=== PATIENT | female | born 1990 | race Caucasian/White ===

== ENCOUNTER 2022-06-08 15:20 | Emergency (ER) | payer MEDICAID, SELFPAY ==
[2022-06-08 15:33] VITALS: BP 114/76; PULSE 78; RESP 18; TEMP 37.1; O2SAT 99; BMI 20.8
--- OUTSIDE RECORDS SUMMARY | 2022-06-08 16:08 | XMS_ITS | Clinical Summary ---
:1990 Author Organization [facility] [facility] [place] [address] Care Team Providers Name Role Phone Pcp, No Primary Care Provider Unavailable Allergies No known active allergies Medications No known medications Active Problems Problem Noted Date Contraceptive surveillance, unspecified 02/04/2008 Immunizations Name Administration Dates Next Due DTP 01/06/1995, 08/26/1991, 1990 DTP-HIB 01/23/1993 DTaP-HIB (TriHIBIT) 01/23/1993 Hepatitis B (Peds) 08/30/2002, 03/28/2002, 02/16/2002 MMR 02/16/2002, 01/23/1993 Oral Polio Vaccine 01/06/1995, 01/23/1993, 1990 Td (Age >=7 Years) 08/02/2004 Tuberculin (PPD) 04/07/2008 Family History Medical History Relation Name Comments Other Father Brain aneurysm Good Health Maternal Grandmother Good Health Mother Diabetes Paternal Grandmother Relation Name Status Comments Father Maternal Grandmother Mother Paternal Grandmother Social History Tobacco Use Types Packs/Day Years Used Date Current Every Day Smoker Cigarettes 0.5 Smokeless Tobacco: Never Used Comments: mother/brother inside-pt still smokes sometimes Alcohol Use Standard Drinks/Week Comments No 0 (1 standard drink = 0.6 oz pure alcoho l) Sex Assigned at Date Recorded Not on file Obstetrics History Para Term AB IAB SAB Ectopic Multiple Living Live Births 0 0 0 0 0 0 0 0 0 0 Last Filed Vital Signs Vital Sign Reading Time Taken Comments Blood Pressure 122/77 01/02/2011 5:20 PM CDT Pulse 105 01/02/2011 5:20 PM CDT Temperature 36.7 ??C (98.1 ??F) 11/23/2007 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 Respiratory Rate - - Oxygen Saturation - - Inhaled Oxygen Concentration - - Weight 73.2 kg (161 lb 6.4 oz) 01/02/2011 5:20 PM CDT Height 165.7 cm (5' 5.25) 01/15/2010 2:22 PM CDT Body Mass Index - - Plan of Treatment Health Maintenance Due Date Last Done Comments COVID-19 vaccine series (#1) 1990 Tdap 2001 Depression screening for age 12+ 2002 BMI (ht and wt on same day) for 01/23/2008 age 18+ Hepatitis C screening for age 0501/23/2008 18-79 Tetanus booster 08/02/2014 08/02/2004 Pap test for age 21-65 10/20/2016 10/20/2013, 10/20/2013, 12/11/2011, Additional history exists Influenza for age 9-49 05/22/2022 Results Not on filefrom Last 3 Months Insurance Payer Benefit Plan / Subscriber ID Effective Dates Phone Addre ss Type Group BLUE CROSS BLUE CROSS OF [id number] 2010-Present [address] [place] [address] [facility] Employer 09/21/1900 [address] [facility] (Home) JAMEE REYES [address] [facility] Self [phone] [facility] [place] [address] Care Teams Canine Enforcement Officer Relationship Specialty Start Date End Date Pcp, No PCP - General 08/27/18 .
[2022-06-08 16:18] LABS: Lactate* 0.6 mmol/L (0.5-1.9)
[2022-06-08 16:20] LABS: Basophils Absolute Auto 0.03 K/uL (0.00-0.30); Basophils Percent Auto 0.6 % (0.0-3.0); Eosinophils Absolute Auto 0.07 K/uL (0.00-0.50); Eosinophils Percent Auto 1.4 % (0.0-7.0); Hemoglobin* 11.3 gm/dL (12.0-16.0); Mean Corpuscular HGB Conc 34 gm/dL (32-36); Mean Corpuscular Hemoglobin 30 pg (26-34); Mean Corpuscular Volume 88 fL (80-100); Monocytes Percent Auto 6.7 % (0.0-11.0); Neutrophils Absolute Auto 2.15 K/uL (1.7-7.0); Neutrophils Percent Auto 43.3 % (42.0-72.0); Platelet Count* 203 K/uL (140-440); RDW Coefficient of Variation % 12.3 % (11.5-15.5); Red Blood Count 3.75 m/uL (4.00-5.20); White Blood Count* 4.96 K/uL (4.50-11.00)
[2022-06-08 16:23] LABS: Slide Review Reflex No
[2022-06-08] MEDS: 0.9 % SODIUM CHLORIDE 1000 ml 1,000 ML IV (16:26)
[2022-06-08] MEDS: ONDANSETRON 2 MG/ML inj 4 MG IVP (16:26)
[2022-06-08 16:38] LABS: Albumin* 4.2 g/dL (3.3-5.0)
[2022-06-08 16:39] LABS: Chloride* 111 mmol/L (96-114); Potassium* 3.2 mmol/L (3.6-5.1); Sodium* 142 mmol/L (135-149)
[2022-06-08 16:41] LABS: Alkaline Phosphatase* 42 U/L (40-150); Aspartate Amino Transferase* 16 U/L (12-35); Bilirubin Direct* 0.2 mg/dL (0.0-0.5); Bilirubin Total* 0.2 mg/dL (0.1-1.5); Total Protein* 6.6 g/dL (6.0-8.3)
[2022-06-08 16:42] LABS: Alanine Aminotransferase* 14 U/L (4-35); Carbon Dioxide* 21 mmol/L (20-32); Creatinine* 0.6 mg/dL (0.5-1.5); Est. Creatinine Clearance* 124.34; Estimated Glomerular Filt Rate 122 ml/min; Lipase* 87 U/L (23-300)
[2022-06-08 16:43] LABS: Blood Urea Nitrogen* 7 mg/dL (5-24); Calcium* 8.8 mg/dL (8.4-10.6); Glucose* 86 mg/dL (60-115)
[2022-06-08] MEDS: POTASSIUM CHLORIDE 10 MEQ CAPSULE ER 20 MEQ PO (17:36)
--- NOTE | 2022-06-08 17:49 | ED.GENADULT ---
HPI - General Adult General Chief complaint: Nausea/Vomiting Stated complaint: blurred and double vision Time Seen by Provider: 06/08/22 15:26 Source: patient Mode of arrival: ambulatory Limitations: no limitations History of Present Illness HPI narrative: Patient is a 32-year-old female coming in today complaining of nausea vomiting and diarrhea. She states that for the last several days she has had 10 or more episodes of diarrhea and 10 or more episodes of vomiting every single day. She tells me that she has lost 16 lb in the last 4 days. She is not dizzy. She states that she had some blurry vision today but not to the point where she could drive a car. She denies abdominal pain. She denies any chest pain. No skin rashes. She denies any recent antibiotic use. She was seen in the urgent care yesterday and received a L of normal saline and some Zofran. She is requesting the same treatment today. No fevers or chills. No headache. Related Data Home Medications Medication Instructions Recorded Confirmed sertraline 100 mg tablet 100 mg PO 06/07/22 06/07/22 topiramate 100 mg tablet 100 mg PO 06/07/22 06/07/22 valacyclovir 500 mg tablet 500 mg PO PRN 06/07/22 06/07/22 Previous Rx's Medication Instructions Recorded ondansetron 4 mg disintegrating 4 mg PO Q8H PRN nausea and 06/07/22 tablet vomiting #30 tabs Allergies Allergy/AdvReac Type Severity Reaction Status Date / Time guaifenesin [From Mucinex] Allergy Intermediate Hallucinati Verified 06/07/22 12:52 ng Review of Systems Status of ROS: Reports: 10 or more systems reviewed and unremarkable except as noted in History and below [facility] Medical History Vomiting Social History Smoking Status: Former smoker Exam Narrative: Exam Narrative: Well-nourished well-developed patient in no acute distress. Alert and oriented. Answers questions appropriately. Mood and affect are appropriate. Thoughts are goal oriented and rational. No tangential or magical thinking noted. Patient speaks in full sentences without needing to catch her breath. Speech is not slurred or pressured. Patient is well groomed. She does not appear sick or toxic. HEENT: Normocephalic atraumatic. Pupils are equally round reactive to light. Extraocular muscles are intact. Conjunctivae are moist without any icterus noted. Moist mucous membranes. Posterior pharynx is normal. Neck is soft without any lymphadenopathy or thyromegaly. No masses are appreciated. Cardiovascular: Heart is regular rate and rhythm S1 and S2 are present without any murmurs. Lungs: Clear to auscultation bilaterally no wheezes rhonchi or rales are appreciated. Patient takes deep breaths without any discomfort. Abdomen: Soft and nontender nondistended with normal bowel sounds. No guarding or rebound. No masses or organomegaly appreciated. Extremities: Bilateral lower extremities are without edema. Normal DP and PT pulses. Skin: Well perfused without any obvious rashes. Her skin is not dry. Const: Vital Signs, click to edit/add: Vital Signs - 24 hr 06/08/22 15:33 Temperature 98.8 F Pulse Rate [Right Pulse Oximeter] 78 Respiratory Rate 18 Blood Pressure [Ri ght Upper Arm] 114/76 Pulse Oximetry 99 Oxygen Delivery Me thod Room Air Course Course Hospital Course: IV was started and patient received a L of normal saline and Zofran. Her lab work was unremarkable aside from a slightly low potassium at 3.2. Did replace that orally today while in the ED. She did not vomit or have any diarrhea while she was here, which was just over 3 hours. Vital Signs Vital signs: Initial Vital Signs Temperature 98.8 F 06/08/22 15:33 Temperature Source Temporal Artery Scan 06/08/22 15:33 Pulse Rate 78 06/08/22 15:33 Respiratory Rate 18 06/08/22 15:33 Blood Pressure 114/76 06/08/22 15:33 Blood Pressure Mean 88 06/08/22 15:33 Blood Pressure Position Sitting 06/08/22 15:33 Pulse Oximetry 99 06/08/22 15:33 Oxygen Delivery Method 06/08/22 15:33 Vital Signs Temperature 98.8 F 06/08/22 15:33 Pulse Rate 78 06/08/22 15:33 Respiratory Rate 18 06/08/22 15:33 Blood Pressure 114/76 06/08/22 15:33 Pulse Oximetry 99 06/08/22 15:33 Oxygen Delivery Method 06/08/22 15:33 Temperature 98.8 F 06/08/22 15:33 Pulse Rate 78 06/08/22 15:33 Respiratory Rate 18 06/08/22 15:33 Blood Pressure 114/76 06/08/22 15:33 Pulse Oximetry 99 06/08/22 15:33 Oxygen Delivery Method 06/08/22 15:33 Medical Decision Making MDM Narrative Medical decision making narrative: 32-year-old female with vomiting diarrhea. We discussed this can last several days for gets better. We discussed small sips frequently throughout the day. She was prescribed Zofran yesterday so she already has that at home. She had no other questions or concerns. Follow-up with her primary care provider regarding weight loss. Lab Data Lab results reviewed: Yes I reviewed the patient's lab results Labs: Lab Results 06/08/22 06/08/22 06/08/22 Range/Units 16:14 16:14 16:14 WBC 4.96 (4.50-11.00) K/uL RBC 3.75 L (4.00-5.20) m/uL Hgb 11.3 L (12.0-16.0) gm/dL Hct 33.0 (33.0-51.0) % MCV 88 (80-100) fL MCH 30 (26-34) pg MCHC 34 (32-36) gm/dL RDW Coeff of Karey 12.3 (11.5-15.5) % Plt Count 203 (140-440) K/uL Neut % (Auto) 43.3 (42.0-72.0) % Lymph % (Auto) 48.0 H (20-44) % [place] % (Auto) 6.7 (0.0-11.0) % Eos % (Auto) 1.4 (0.0-7.0) % Baso % (Auto) 0.6 (0.0-3.0) % Neut # (Auto) 2.15 (1.7-7.0) K/uL Lymph # (Auto) 2.40 (0.90-2.90) K/uL [place] # (Auto) 0.30 (0.00-0.90) K/UL Eos # (Auto) 0.07 (0.00-0.50) K/uL Baso # (Auto) 0.03 (0.00-0.30) K/uL Abs Immat Gran (auto) 0.00 (0.00-0.30) K/uL Sodium 142 (135-149) mmol/L Potassium 3.2 L (3.6-5.1) mmol/L Chloride 111 (96-114) mmol/L Carbon Dioxide 21 (20-32) mmol/L BUN 7 (5-24) mg/dL Creatinine 0.6 (0.5-1.5) mg/dL Estimated Creat Clear 124.34 Estimated GFR 122 ml/min Glucose 86 (60-115) mg/dL Lactate (0.5-1.9) mmol/L Calcium 8.8 (8.4-10.6) mg/dL Total Bilirubin 0.2 (0.1-1.5) mg/dL Direct Bilirubin 0.2 (0.0-0.5) mg/dL AST 16 (12-35) U/L ALT 14 (4-35) U/L Alkaline Phosphatase 42 (40-150) U/L Total Protein 6.6 (6.0-8.3) g/dL Albumin 4.2 (3.3-5.0) g/dL Lipase 87 (23-300) U/L Urine Color (Yellow) Urine Appearance (Clear) Urine pH (5.0-8.5) Ur Specific [place] (1.000-1.030) Urine Protein (Negative) Urine Glucose (UA) (Negative) Urine Ketones (Negative) Urine Blood (Negative) Urine Nitrite (Negative) Urine Bilirubin (Negative) Urine Urobilinogen (0.2-1.0) Ur Leukocyte Esterase (Negative) Urine RBC (0-2) Urine WBC (0-5) Ur Squamous Epith Cells (None-Few) Urine Bacteria (None) 06/08/22 06/08/22 Range/Units 16:14 17:58 WBC (4.50-11.00) K/uL RBC (4.00-5.20) m/uL Hgb (12.0-16.0) gm/dL Hct (33.0-51.0) % MCV (80-100) fL MCH (26-34) pg MCHC (32-36) gm/dL RDW Coeff of Karey (11.5-15.5) % Plt Count (140-440) K/uL Neut % (Auto) (42.0-72.0) % Lymph % (Auto) (20-44) % [place] % (Auto) (0.0-11.0) % Eos % (Auto) (0.0-7.0) % Baso % (Auto) (0.0-3.0) % Neut # (Auto) (1.7-7.0) K/uL Lymph # (Auto) (0.90-2.90) K/uL [place] # (Auto) (0.00-0.90) K/UL Eos # (Auto) (0.00-0.50) K/uL Baso # (Auto) (0.00-0.30) K/uL Abs Immat Gran (auto) (0.00-0.30) K/uL Sodium (135-149) mmol/L Potassium (3.6-5.1) mmol/L Chloride (96-114) mmol/L Carbon Dioxide (20-32) mmol/L BUN (5-24) mg/dL Creatinine (0.5-1.5) mg/dL Estimated Creat Clear Estimated GFR ml/min Glucose (60-115) mg/dL Lactate 0.6 (0.5-1.9) mmol/L Calcium (8.4-10.6) mg/dL Total Bilirubin (0.1-1.5) mg/dL Direct Bilirubin (0.0-0.5) mg/dL AST (12-35) U/L ALT (4-35) U/L Alkaline Phosphatase (40-150) U/L Total Protein (6.0-8.3) g/dL Albumin (3.3-5.0) g/dL Lipase (23-300) U/L Urine Color Yellow (Yellow) Urine Appearance Clear (Clear) Urine pH 7.0 (5.0-8.5) Ur Specific [place] 1.015 (1.000-1.030) Urine Protein Negative (Negative) Urine Glucose (UA) Negative (Negative) Urine Ketones Negative (Negative) Urine Blood Negative (Negative) Urine Nitrite Negative (Negative) Urine Bilirubin Negative (Negative) Urine Urobilinogen 0.2 (0.2-1.0) Ur Leukocyte Esterase Negative (Negative) Urine RBC 0-2 (0-2) Urine WBC 0-2 (0-5) Ur Squamous Epith Cells Moderate A (None-Few) Urine Bacteria Few A (None) Discharge Plan Discharge Clinical Impression: Gastroenteritis, Acute hypokalemia Patient Disposition: Home, Self-Care Condition: Stable Additional Instructions: Take Zofran every 4 hours as needed. Take small sips of fluid frequently throughout the day. Return to the ER if you develop a fever. Prescriptions: No Action topiramate 100 mg tablet 100 mg PO Label Comments: TAKE ONE TABLET BY MOUTH AT BEDTIME sertraline 100 mg tablet 100 mg PO Label Comments: TAKE ONE TABLET BY MOUTH EVERY DAY valacyclovir 500 mg tablet 500 mg PO PRN Label Comments: TAKE ONE TABLET BY MOUTH TWICE A DAY ondansetron 4 mg tablet,disintegrating 4 mg PO Q8H PRN (Reason: nausea and vomiting) Qty: 30 0RF Follow Up/Referrals: Hemant Ayala MD [Primary Care Provider] - Stand Alone Forms: [email or web address] Info Instructions
[2022-06-08 18:31] LABS: Appearance Urine Clear (Clear); Bilirubin Urine Negative (Negative); Blood Urine Negative (Negative); Color Urine Yellow (Yellow); Glucose Urine Negative (Negative); Ketones Urine Negative (Negative); Leukocyte Esterase Urine Negative (Negative); Nitrite Urine Negative (Negative); Protein Urine Negative (Negative); Specific Gravity Urine 1.015 (1.000-1.030); Urobilinogen Urine 0.2 (0.2-1.0)
[2022-06-08 18:33] LABS: Bacteria Urine Few; RBC Urine 0-2 (0-2); Squamous Epithelial Cell Urine Moderate (None-Few); WBC Urine 0-2 (0-5)
[2022-06-08 19:17] VITALS: BP 107/74; PULSE 61; RESP 16; O2SAT 99
--- NOTE | 2022-06-09 16:04 | ED.NURSE ---
Lab called wondering about sample collection for Cdiff ordered during pt's visit. Reviewed pt's DC plan and provider note and advised lab that it did not appear that the pt would be collecting or providing a sample.
== END 2022-06-08 19:21 | disposition home or self-care (01) ==
PROVIDERS: Emergency Provider Family Medicine; PCP Family Medicine
DX: K52.9 Noninfective gastroenteritis and colitis, unspecified (principal); E87.6 Hypokalemia
CPT/HCPCS: 36415; 80048; 80076; 81001; 83605; 83690; 85025; 87086; 87493; 96374; 99284; A9270; J2405; J7030

== ENCOUNTER 2022-06-10 10:20 | Outpatient (CLI) | payer MEDICAID, SELFPAY ==
--- OUTSIDE RECORDS SUMMARY | 2022-06-10 10:23 | XMS_ITS | Clinical Summary ---
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
[2022-06-10 13:45] LABS: Basophils Absolute Auto 0.04 K/uL (0.00-0.30); Basophils Percent Auto 0.7 % (0.0-3.0); Eosinophils Absolute Auto 0.06 K/uL (0.00-0.50); Eosinophils Percent Auto 1.1 % (0.0-7.0); Hematocrit 35.5 % (33.0-51.0); Hemoglobin* 12.1 gm/dL (12.0-16.0); Lymphocytes Absolute Auto 2.07 K/uL (0.90-2.90); Lymphocytes Percent Auto 38.3 % (20-44); Mean Corpuscular HGB Conc 34 gm/dL (32-36); Mean Corpuscular Hemoglobin 30 pg (26-34); Mean Corpuscular Volume 89 fL (80-100); Monocytes Percent Auto 4.8 % (0.0-11.0); Neutrophils Absolute Auto 2.98 K/uL (1.7-7.0); Neutrophils Percent Auto 55.1 % (42.0-72.0); Platelet Count* 236 K/uL (140-440); RDW Coefficient of Variation % 12.4 % (11.5-15.5); Red Blood Count 3.99 m/uL (4.00-5.20); White Blood Count* 5.41 K/uL (4.50-11.00)
[2022-06-10 13:52] LABS: Chloride* 110 mmol/L (96-114); Potassium* 4.1 mmol/L (3.6-5.1); Slide Review Reflex No; Sodium* 141 mmol/L (135-149)
[2022-06-10 13:55] LABS: Creatinine* 0.6 mg/dL (0.5-1.5); Estimated Glomerular Filt Rate 122 ml/min
[2022-06-10 13:56] LABS: Blood Urea Nitrogen* 8 mg/dL (5-24); Calcium* 9.2 mg/dL (8.4-10.6); Carbon Dioxide* 21 mmol/L (20-32); Glucose* 86 mg/dL (60-115)
== END 2022-06-10 10:21 | disposition home or self-care (01) ==
PROVIDERS: PCP Family Medicine; Visit Provider Nurse Practitioner Family
DX: R42 Dizziness and giddiness (principal); E87.6 Hypokalemia
CPT/HCPCS: 36415; 80048; 85025

== ENCOUNTER 2022-07-31 09:05 | Outpatient (CLI) | payer MEDICAID, SELFPAY ==
--- OUTSIDE RECORDS SUMMARY | 2022-07-31 09:11 | XMS_ITS | Clinical Summary ---
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
== END 2022-07-31 09:06 | disposition home or self-care (01) ==
LOC: KYNREF 09:06
PROVIDERS: PCP Family Medicine; Visit Provider Nurse Practitioner Family
DX: R41.840 Attention and concentration deficit (principal)
CPT/HCPCS: 36415; 84443

== ENCOUNTER 2022-12-15 16:52 | Emergency (ER) | payer MEDICAID, SELFPAY ==
[2022-12-15 17:25] VITALS: BP 125/88; PULSE 75; RESP 18; TEMP 36.6; O2SAT 99; BMI 20.4
[2022-12-15] MEDS: ONDANSETRON 2 MG/ML inj 4 MG IVP (18:12)
[2022-12-15] MEDS: 0.9 % SODIUM CHLORIDE 1000 ml 1,000 ML IV (18:12)
[2022-12-15 18:18] LABS: Basophils Absolute Auto 0.05 K/uL (0.00-0.30); Basophils Percent Auto 0.9 % (0.0-3.0); Eosinophils Absolute Auto 0.07 K/uL (0.00-0.50); Eosinophils Percent Auto 1.3 % (0.0-7.0); Hematocrit 34.4 % (33.0-51.0); Hemoglobin* 12.1 gm/dL (12.0-16.0); Immature Granulocytes Abs Auto 0.01 K/uL (0.00-0.30); Immature Granulocytes Pct Auto 0.2 %; Lymphocytes Percent Auto 44.3 % (20-44); Mean Corpuscular HGB Conc 35 gm/dL (32-36); Mean Corpuscular Hemoglobin 31 pg (26-34); Mean Corpuscular Volume 87 fL (80-100); Neutrophils Absolute Auto 2.58 K/uL (1.7-7.0); Neutrophils Percent Auto 48.3 % (42.0-72.0); Platelet Count* 201 K/uL (140-440); RDW Coefficient of Variation % 12.3 % (11.5-15.5); Red Blood Count 3.96 m/uL (4.00-5.20); White Blood Count* 5.35 K/uL (4.50-11.00)
[2022-12-15 18:19] LABS: Slide Review Reflex No
[2022-12-15 18:28] LABS: PCR FLU A Negative PCR FLU A (Negative); PCR FLU B Negative PCR FLU B (Negative)
[2022-12-15 18:30] VITALS: BP 120/82; PULSE 67; RESP 16; O2SAT 100
[2022-12-15 18:30] LABS: SARS PCR* Negative SARS-CoV-2 (Negative)
[2022-12-15] MEDS: GI COCKTAIL (VISC LIDO/ANTACID) 30 ML PO (18:30)
[2022-12-15 18:31] LABS: Albumin* 4.1 g/dL (3.3-5.0); Chloride* 107 mmol/L (96-114); Sodium* 140 mmol/L (135-149)
[2022-12-15 18:34] LABS: Bilirubin Direct* 0.2 mg/dL (0.0-0.5); Bilirubin Total* 0.3 mg/dL (0.1-1.5); Carbon Dioxide* 26 mmol/L (20-32); Creatinine* 0.5 mg/dL (0.5-1.5); Est. Creatinine Clearance* 150.37; Estimated Glomerular Filt Rate 128 ml/min
[2022-12-15 18:35] LABS: Alanine Aminotransferase* 17 U/L (4-35); Alkaline Phosphatase* 36 U/L (40-150); Aspartate Amino Transferase* 17 U/L (12-35); Blood Urea Nitrogen* 10 mg/dL (5-24); Calcium* 8.7 mg/dL (8.4-10.6); Glucose* 105 mg/dL (60-115); Lipase* 99 U/L (23-300); Total Protein* 6.8 g/dL (6.0-8.3)
[2022-12-15 18:37] LABS: C Reactive Protein* 1.2 mg/dL (0.5-1.0)
[2022-12-15 19:00] VITALS: BP 112/84; PULSE 64; RESP 16; O2SAT 100
[2022-12-15] MEDS: OMEPRAZOLE 20 MG CAPSULE DR 40 MG PO (19:11)
[2022-12-15 19:30] VITALS: BP 117/79; PULSE 59; RESP 16; O2SAT 100
[2022-12-15 19:34] LABS: Magnesium* 1.8 mg/dL (1.5-2.6)
--- NOTE | 2022-12-16 13:52 | ED_ITS ---
HPI - Abdominal Pain General Chief Complaint: Abdominal Pain Stated Complaint: Weakness Dizziness Abdominal Pain Time Seen by Provider: 12/15/22 17:37 History of Present Illness HPI narrative: 32-year-old young woman here with persistent upper abdominal pain. Exacerbated particularly with any oral ingestion liquid or solid. No fever. She has had these symptoms now for about 6 days. Over the last couple of days has now been vomiting and experiencing diarrhea. No particular exposures noted. At this point needs more energy to take care of the kids. Indicates the pain in her abdomen in the epigastrium. Does recall a history of GERD during pregnancies. No hematemesis, hematochezia or melena described. Is feeling weaker and a little lightheaded. She is status post hysterectomy. Denies dysuria or frequency. Has had similar pains before. It does not sound as though there is any further evaluation planned. Does not describe any particular historical food intolerances. Does have Zofran available but this seems to drive more nausea as she really does not like the taste --sounds like the chalky version. Related Data Home Medications Medication Instructions Recorded Confirmed topiramate 100 mg tablet 100 mg PO 06/07/22 11/24/22 valacyclovir 500 mg tablet 500 mg PO PRN 06/07/22 11/24/22 mecobalamin (vitamin B12) 1,000 1,000 mcg PO QDAY 11/24/22 12/15/22 mcg chewable tablet Previous Rx's Medication Instructions Recorded dextroamphetamine-amphetamine ER 10 - 20 mg PO QAM #49 caps 11/25/22 10 mg 24hr capsule,extend release (Adderall XR) hydroxyzine HCl 25 mg tablet 25 mg PO QHS PRN insomnia #30 tabs 11/25/22 venlafaxine 75 mg capsule,extended 75 - 150 mg PO QAM #60 caps 11/25/22 release 24 hr (Effexor XR) omeprazole 40 mg capsule,delayed 40 mg PO DAILY #30 caps 12/15/22 release potassium chloride 20 mEq 20 meq PO DAILY #15 tabs 12/15/22 tablet,extended release Allergies Allergy/AdvReac Type Severity Reaction Status Date / Time guaifenesin [From Mucinex] Allergy Intermediate Hallucinati Verified 12/15/22 17:29 ng Review of Systems Status of ROS Reports: 6 or more systems reviewed and unremarkable except as noted in History and below [facility] Medical History ADHD ?F90.9 - Attention-deficit hyperactivity disorder, unspecified type (ICD-10) Compulsive behavior ?R46.89 - Other symptoms and signs involving appearance and behavior (ICD-10) History of abnormal cervical Papanicolaou smear (2010) ?Z87.42 - Personal history of other diseases of the female genital tract (ICD-10) History of migraine ?Z86.69 - Personal history of other diseases of the nervous system and sense organs (ICD-10) History of depression ?Z87.59 - Personal history of other complications of , childbirth and the puerperium (ICD-10) ?Z86.59 - Personal history of other mental and behavioral disorders (ICD-10) History of smoking ?Z87.891 - Personal history of nicotine dependence (ICD-10) History of use of contraceptive intrauterine device (IUD) ?Z92.0 - Personal history of contraception (ICD-10) Insomnia ?G47.00 - Insomnia, unspecified (ICD-10) Medication management ?Z79.899 - Other half-way (current) drug therapy (ICD-10) Vomiting ?R11.10 - Vomiting, unspecified (ICD-10) Surgical History History of 3 sections ?Z98.891 - History of uterine scar from previous surgery (ICD-10) History of bilateral ligation of fallopian tubes ?Z98.51 - Tubal ligation status (ICD-10) History of colposcopy (2010) ?Z98.890 - Other specified postprocedural states (ICD-10) Status post delivery ?Z98.891 - History of uterine scar from previous surgery (ICD-10) Status post total abdominal hysterectomy ?Z90.710 - Acquired absence of both cervix and uterus (ICD-10) Family History Paternal Grandmother Diabetes Father Cerebral aneurysm Social History Narrative: exercises regularly 3/week volleyball, softball, non smoker quit age 24, rarely consumes alcohol, 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, 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 Looks uncomfortable a little tired. Direct in communication. Skin is warm and dry. No rashes on exposed skin. Well perfused peripherally no edema. Oropharynx is sticky. Not erythematous. Neck is supple without lymphadenopathy. Lungs are clear. There is no flank tenderness. Heart with regular rate and rhythm. Abdomen with normoactive bowel sounds is flat soft and with tenderness in the epigastrium. No masses appreciated. Const: Vital Signs, click to edit/add: Vital Signs - 24 hr 12/15/22 17:25 12/15/22 19:00 12/15/22 18:30 Temperature 97.8 F Pulse Rate [Pulse Oximeter] 75 64 67 Respiratory Rate 18 16 16 Blood Pressure [Ri ght Upper Arm] 125/88 112/84 120/82 Pulse Oximetry 99 100 100 Oxygen Delivery Me thod Room Air Room Air Room Air 12/15/22 19:30 Temperature Pulse Rate [Pulse Oximeter] 59 L Respiratory Rate 16 Blood Pressure [Ri ght Upper Arm] 117/79 Pulse Oximetry 100 Oxygen Delivery Me thod Room Air Documenting provider has reviewed patient's vital signs: yes Course Vital Signs Vital signs: Initial Vital Signs Temperature 97.8 F 12/15/22 17:25 Temperature Source Temporal Artery Scan 12/15/22 17:25 Pulse Rate 75 12/15/22 17:25 Respiratory Rate 18 12/15/22 17:25 Blood Pressure 125/88 12/15/22 17:25 Blood Pressure Mean 100 12/15/22 17:25 Blood Pressure Position Sitting 12/15/22 17:25 Pulse Oximetry 99 12/15/22 17:25 Oxygen Delivery Method Room Air 12/15/22 17:25 Vital Signs Temperature 97.8 F 12/15/22 17:25 Pulse Rate 75 12/15/22 17:25 Respiratory Rate 18 12/15/22 17:25 Blood Pressure 125/88 12/15/22 17:25 Pulse Oximetry 99 12/15/22 17:25 Oxygen Delivery Method Room Air 12/15/22 17:25 Temperature 97.8 F 12/15/22 17:25 Pulse Rate 59 L 12/15/22 19:30 Respiratory Rate 16 12/15/22 19:30 Blood Pressure 117/79 12/15/22 19:30 Pulse Oximetry 100 12/15/22 19:30 Oxygen Delivery Method Room Air 12/15/22 19:30 MDM - Abdominal Pain MDM Narrative Medical decision making narrative: I would anticipate dehydration here. Pain in area consistent with gastritis/duodenitis possibly ulcer. Possibly secondary infectious enteritis/colitis as well. Absence of fever perhaps is reassuring. No history of inflammatory bowel disorders. Will check labs also for evidence of gallbladder disease. It sounds as though at this point would benefit from IV hydration which might help her over the hump. We discussed also GI cocktail for relief of discomfort. This is given along with IV fluids and IV Zofran. Later omeprazole. GI cocktail did seem to numb the area in question though still with remaining discomfort. Triple swab negative Labs overall reassuring --note isolated hypokalemia I think would benefit from further outpatient workup given recurrence of these symptoms. In the meantime 2 weeks of PPI. See patient discharge plan Lab Data Attestation: I reviewed the patient's lab results. Labs: Lab Results 12/15/22 12/15/22 Range/Units 17:35 18:08 WBC 5.35 (4.50-11.00) K/uL RBC 3.96 L (4.00-5.20) m/uL Hgb 12.1 (12.0-16.0) gm/dL Hct 34.4 (33.0-51.0) % MCV 87 (80-100) fL MCH 31 (26-34) pg MCHC 35 (32-36) gm/dL RDW Coeff of Karey 12.3 (11.5-15.5) % Plt Count 201 (140-440) K/uL Neut % (Auto) 48.3 (42.0-72.0) % Lymph % (Auto) 44.3 H (20-44) % [place] % (Auto) 5.0 (0.0-11.0) % Eos % (Auto) 1.3 (0.0-7.0) % Baso % (Auto) 0.9 (0.0-3.0) % Neut # (Auto) 2.58 (1.7-7.0) K/uL Lymph # (Auto) 2.40 (0.90-2.90) K/uL [place] # (Auto) 0.30 (0.00-0.90) K/UL Eos # (Auto) 0.07 (0.00-0.50) K/uL Baso # (Auto) 0.05 (0.00-0.30) K/uL Sodium 140 (135-149) mmol/L Potassium 3.0 L (3.6-5.1) mmol/L Chloride 107 (96-114) mmol/L Carbon Dioxide 26 (20-32) mmol/L BUN 10 (5-24) mg/dL Creatinine 0.5 (0.5-1.5) mg/dL Estimated Creat Clear 150.37 Estimated GFR 128 ml/min Glucose 105 (60-115) mg/dL Calcium 8.7 (8.4-10.6) mg/dL Magnesium 1.8 (1.5-2.6) mg/dL Total Bilirubin 0.3 (0.1-1.5) mg/dL Direct Bilirubin 0.2 (0.0-0.5) mg/dL AST 17 (12-35) U/L ALT 17 (4-35) U/L Alkaline Phosphatase 36 L (40-150) U/L C-Reactive Protein 1.2 H (0.5-1.0) mg/dL Total Protein 6.8 (6.0-8.3) g/dL Albumin 4.1 (3.3-5.0) g/dL Lipase 99 (23-300) U/L SARS-CoV-2 (PCR) Negative SARS-CoV-2 (Negative) Influenza Type A (PCR) Negative PCR FLU A (Negative) Influenza Type B (PCR) Negative PCR FLU B (Negative) Discharge Plan Discharge Clinical Impression: Epigastric pain, Hypokalemia Patient Disposition: Home, Self-Care Condition: Improved Additional Instructions: I would take this omeprazole daily over the next 2 weeks and then be reassessed. Maybe call tomorrow to make a tentative appointment. Would also recheck potassium levels at that time. Focus on hydration from this more acute episode with slow diet advance over the next 36 hours or so. Diluted juices, soup broths, crackers, toast, rice. Then advance to thicker soups maybe smoothies. Return for intractable vomiting, uncontrolled pain, associated fever. Prescriptions: New omeprazole 40 mg capsule,delayed release(DR/EC) 40 mg PO DAILY Qty: 30 0RF potassium chloride 20 mEq tablet extended release 20 meq PO DAILY Qty: 15 0RF No Action dextroamphetamine-amphetamine [Adderall XR] 10 mg capsule,extended release 24hr 10 - 20 mg PO QAM Qty: 49 0RF Rx Instructions: take 1 cap qd x 1 wk, then increase to 2 cap qd for adhd venlafaxine [Effexor XR] 75 mg capsule,extended release 24hr 75 - 150 mg PO QAM Qty: 60 1RF Rx Instructions: take one cap every morning for one week then increase to two caps daily for mood hydroxyzine HCl 25 mg tablet 25 mg PO QHS PRN (Reason: insomnia) Qty: 30 2RF topiramate 100 mg tablet 100 mg PO Patient Comments: TAKE ONE TABLET BY MOUTH AT BEDTIME valacyclovir 500 mg tablet 500 mg PO PRN Patient Comments: TAKE ONE TABLET BY MOUTH TWICE A DAY mecobalamin (vitamin B12) 1,000 mcg tablet,chewable 1,000 mcg PO QDAY Follow Up/Referrals: Soraida Fuller, VENEER MARKER, 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
== END 2022-12-15 19:44 | disposition home or self-care (01) ==
PROVIDERS: Emergency Provider Family Medicine; PCP Nurse Practitioner Family
DX: R10.13 Epigastric pain (principal); E87.6 Hypokalemia
CPT/HCPCS: 36415; 80048; 80076; 83690; 83735; 85025; 86140; 87631; 99283; 99284; A9270; J2405; J7030

== ENCOUNTER 2022-12-22 08:56 | Outpatient (CLI) | payer MEDICAID, SELFPAY ==
[2022-12-22 13:40] LABS: Potassium* 4.4 mmol/L (3.6-5.1)
== END 2022-12-22 08:57 | disposition home or self-care (01) ==
PROVIDERS: PCP Nurse Practitioner Family; Visit Provider Nurse Practitioner Family
DX: E87.6 Hypokalemia (principal)
CPT/HCPCS: 84132

== ENCOUNTER 2023-06-08 11:34 | Outpatient (CLI) | payer MEDICAID, SELFPAY | END 2023-06-08 11:35 | disposition home or self-care (01) | PROVIDERS: PCP Nurse Practitioner Family; Visit Provider Nurse Practitioner Family | DX: R10.13 Epigastric pain (principal); R11.0 Nausea; R10.9 Unspecified abdominal pain | CPT/HCPCS: 80053; 82150; 82784; 83690; 84443; 85025; 86364 ==

== ENCOUNTER 2023-06-10 15:00 | Outpatient (CLI) | payer MEDICAID, SELFPAY | END 2023-06-10 15:01 | disposition home or self-care (01) | LOC: NFLDREF 06-12 13:54 | PROVIDERS: PCP Nurse Practitioner Family; Referring Provider Nurse Practitioner Family; Visit Provider Nurse Practitioner Family | DX: R10.13 Epigastric pain (principal); R10.9 Unspecified abdominal pain; R11.0 Nausea | CPT/HCPCS: 87338 ==

== ENCOUNTER 2023-06-12 07:03 | Outpatient (CLI) | payer MEDICAID, SELFPAY ==
--- NOTE | 2023-06-12 07:15 | CRLHL7_ITS ---
For Patients: As a result of the Century Cures Act, medical imaging exams and procedure reports are released immediately into your electronic medical record. You may view this report before your referring provider. If you have questions, please contact your health care provider. INDICATION: EPIGASTRIC PAIN COMPARISON: none TECHNIQUE: Real time vargehse scale imaging and color Doppler analysis was performed of the right upper quadrant. FINDINGS: The patient`s liver is of normal size and has uniform echogenicity. There is a normal appearance of the hepatic IVC and proximal abdominal aorta. There is no evidence of ascites. The gallbladder is of normal size and there is no evidence of intraluminal stones or sludge. The gallbladder wall measures 2 mm in thickness. The common bile duct is of normal size and measures 4 mm in diameter at the level of the danny hepatis. The pancreas appears normal. There is no evidence of a stone or hydronephrosis within the right kidney. The right kidney measures 13.5 cm in length. IMPRESSION: Normal right upper quadrant ultrasound. Dictated by Nitish Aguirre MD @ 06/12/2023 11:11:04 AM (Electronically Signed)
== END 2023-06-12 07:04 | disposition home or self-care (01) ==
LOC: US 07:03
PROVIDERS: PCP Nurse Practitioner Family; Visit Provider Nurse Practitioner Family
DX: R10.13 Epigastric pain (principal); R10.9 Unspecified abdominal pain
CPT/HCPCS: 76705

== ENCOUNTER 2023-11-22 12:32 | Emergency (ER) | payer MEDICAID, SELFPAY ==
[2023-11-22 12:36] VITALS: BP 124/78; PULSE 91; RESP 16; TEMP 36.7; O2SAT 96; BMI 22.8
--- NOTE | 2023-11-22 12:43 | ED.GENADULT ---
HPI - General Adult General Time Seen by Provider: 13:13 Date Seen: 11/22/23 Chief complaint: Cough Stated complaint: Lungs burning Time Seen by Provider: 11/22/23 12:37 Source: patient, RN notes reviewed and old records reviewed Mode of arrival: ambulatory Limitations: no limitations History of Present Illness HPI narrative: This 33-year-old female is coming in with complaint of coughing in her chest burning with coughing and breathing. She has been sick since about mid October, has been to urgent care twice. I have reviewed the urgent care visits from November 09 and November 18. She got a shot of dexamethasone on November 09, felt it helped her symptoms for few days. On November 18 she went in for ongoing cough and chest symptoms, was diagnosed with rhinosinusitis. She was given Augmentin, 7 day course, albuterol. She does not feel the albuterol helps. The cough is significantly worse at night, is not sleeping. She is feeling pressure in her forehead along the bridge of the nose. She has chronic TMJ issues, difficult to say if her teeth are hurting. She has been sweaty at night but is never had a fever throughout this. No history of asthma. Both urgent care notes were thoroughly reviewed. She was negative on initial viral testing. Remote history of smoking, quit over 9 years ago. Patient did start with some diarrhea, she states that does not have any foul odor to it. Related Data Previous Rx's Medication Instructions Recorded albuterol sulfate 90 mcg/actuation 2 puff inhalation Q4-6H PRN 11/18/23 aerosol inhaler shortness of breath or wheezing #1 ea amoxicillin 875 mg-potassium 1 tab PO BID 7 days #14 tabs 11/18/23 clavulanate 125 mg tablet prednisone 20 mg tablet 40 mg (2 x 20 mg) PO QDAY 5 days 11/18/23 #10 tabs amoxicillin 875 mg-potassium 1 tab PO BID #14 tabs 11/22/23 clavulanate 125 mg tablet codeine sulfate 30 mg tablet 30 mg PO HS PRN #10 tabs 11/22/23 fluticasone propionate 50 2 spray intranasal DAILY #16 grams 11/22/23 mcg/actuation nasal spray,suspension prednisone 20 mg tablet 20 mg PO BID #10 tabs 11/22/23 Allergies Allergy/AdvReac Type Severity Reaction Status Date / Time guaifenesin [From Mucinex] Allergy Intermediate Hallucinati Verified 11/22/23 12:36 ng Review of Systems Status of ROS: Reports: 6 or more systems reviewed and unremarkable except as noted in History and below [facility] Medical History History of depression ?Z87.59 - Personal history of other complications of , childbirth and the puerperium (ICD-10) ?Z86.59 - Personal history of other mental and behavioral disorders (ICD-10) Compulsive behavior ?R46.89 - Other symptoms and signs involving appearance and behavior (ICD-10) Insomnia ?G47.00 - Insomnia, unspecified (ICD-10) Medication management ?Z79.899 - Other group home (current) drug therapy (ICD-10) History of use of contraceptive intrauterine device (IUD) ?Z92.0 - Personal history of contraception (ICD-10) History of migraine ?Z86.69 - Personal history of other diseases of the nervous system and sense organs (ICD-10) History of abnormal cervical Papanicolaou smear (2010) ?Z87.42 - Personal history of other diseases of the female genital tract (ICD-10) Surgical History Status post total abdominal hysterectomy ?Z90.710 - Acquired absence of both cervix and uterus (ICD-10) Status post delivery ?Z98.891 - History of uterine scar from previous surgery (ICD-10) History of colposcopy (2010) ?Z98.890 - Other specified postprocedural states (ICD-10) History of bilateral ligation of fallopian tubes ?Z98.51 - Tubal ligation status (ICD-10) History of 3 sections ?Z98.891 - History of uterine scar from previous surgery (ICD-10) Family History Paternal Grandmother Diabetes Father Cerebral aneurysm Social History Narrative: exercises regularly 3/week volleyball, softball, non smoker quit age 24, rarely consumes alcohol, 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, 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, 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 Smoking Status: Former smoker Do you use any of these nicotine containing products: None Second hand tobacco smoke exposure: No How often do you have a drink containing alcohol: monthly or less How many standard drinks containing alcohol do you have on a typical day: 1 or 2 How often do you have six or more drinks on one occasion: Never AUDIT-C Alcohol total score: 1 Non-prescribed substance use: denies use Little interest or pleasure in doing things: several days Feeling down, depressed, or hopeless: several days Exam Const: Vital Signs, click to edit/add: Vital Signs - 24 hr 11/22/23 12:36 11/22/23 13:53 Temperature 98.0 F 98.0 F Pulse Rate [Pulse Oximeter] 91 91 Respiratory Rate 16 16 Blood Pressure [Ri ght Upper Arm] 124/78 124/78 Pulse Oximetry 96 Oxygen Delivery Me thod Room Air Patient is alert, interactive, no apparent distress. Breathing easy on room air, speech is normal. Pupils equal round reactive to light, sclera clear. No maxillary sinus tenderness on palpation. She has pain over the frontal area just above the nose on percussion. Anterior nares show some erythematous mucosa but still see good nasal passages, no exudates. Oropharynx normal mucosa, no exudates or erythema. TMs canals normal, no evidence of infection. Neck is supple, no cervical adenopathy, no thyromegaly masses or nodules. Lungs are clear, maybe some decreased breath sounds both bases but do not hear any wheezing or crackles. Deep breathing does induce a dry cough. CV regular rate and rhythm, no murmur, normal S1-S2, no S3-S4. Documenting provider has reviewed patient's vital signs: yes Course Course ED Course: This patient has had upper respiratory infection symptoms, diagnosed with sinusitis recently. She just started Augmentin on November 18, today is November 21. Would not anticipate good antibiotic coverage improvement of sinusitis quickly. Discussed with her doing a chest x-ray. She is not hypoxic, not running fevers. Her cough is certainly worse at night and causing problems with sleeping, this would go along with sinusitis as well as potential pneumonia. We did discuss use of nasal steroid such as Flonase or Nasacort, additional prednisone, extension of antibiotics. Also did review with her that we could do head CT imaging to confirm sinusitis, did review radiation with this. She would like to proceed with chest x-ray just to make sure were not missing anything in lungs. If chest x-ray is reassuring, will make recommendations for symptom management and continuation on antibiotics. Reevaluation(s) Time of Reevaluation #1: 13:31 Reevaluation #1: Have reviewed negative chest x-ray with patient. She is likely having coughing from postnasal drainage from sinusitis, agree with urgent care provider. Will extend her Augmentin, she should continue on probiotics. She has had C difficile reviewed with her by Urgent Care, she seems to have sufficient knowledge. No need for testing at this time based on clinical presentation history. Will add in nasal steroid, will give her some codeine to help with sleep. She hallucinated with guaifenesin, has not ever tried any Robitussin or any other medicine with guaifenesin in it. Thus will just try the codeine for the cough suppression at bedtime. She understands it is narcotic in the side effects with this. 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 Vital Signs Vital signs: Initial Vital Signs Temperature 98.0 F 11/22/23 12:36 Temperature Source Temporal Artery Scan 11/22/23 12:36 Pulse Rate 91 11/22/23 12:36 Respiratory Rate 16 11/22/23 12:36 Blood Pressure 124/78 11/22/23 12:36 Blood Pressure Mean 93 11/22/23 12:36 Blood Pressure Position Sitting 11/22/23 12:36 Pulse Oximetry 96 11/22/23 12:36 Oxygen Delivery Method Room Air 11/22/23 12:36 Vital Signs Temperature 98.0 F 11/22/23 12:36 Pulse Rate 91 11/22/23 12:36 Respiratory Rate 16 11/22/23 12:36 Blood Pressure 124/78 11/22/23 12:36 Pulse Oximetry 96 11/22/23 12:36 Oxygen Delivery Method Room Air 11/22/23 12:36 Temperature 98.0 F 11/22/23 13:53 Pulse Rate 91 11/22/23 13:53 Respiratory Rate 16 11/22/23 13:53 Blood Pressure 124/78 11/22/23 13:53 Pulse Oximetry 96 11/22/23 12:36 Oxygen Delivery Method Room Air 11/22/23 12:36 Medical Decision Making Imaging Data Chest x-ray: Attestation: I have reviewed the pertinent imaging results. My impression: I see no acute infiltrate on my preliminary review, await Radiology over-read. Radiologist's impression: Patient: JORGE ALBERTO MCCAIN Facility:?[facility] Patient ID:?[id number] Site Patient ID:?[id number]. Site :?1990 Study:?XRay Chest 2V-11/22/2023 1:07:17 PM Ordering Physician:KIAN Final Report: Indication: Cough Comparison: None available. Technique: PA and lateral views of the chest Findings: There is no focal consolidation, effusion, or pneumothorax. The cardiomediastinal silhouette is within normal limits. The bony thorax is grossly intact. Impression: No acute cardiopulmonary abnormality. Dictated by Kristian Marte MD @ 11/22/2023 1:28:54 PM (Electronic Signature) Discharge Plan Discharge Clinical Impression: Acute bacterial rhinosinusitis Patient Disposition: Home, Self-Care Condition: Stable Instructions: Rhinosinusitis (ED) Additional Instructions: Continue with the Augmentin, I have sent in an extension of the antibiotic to be used. Can take plma-ycd-sqxgool medicines as needed for symptom control but I will give you a prescription cough medicine for bedtime with codeine to help you sleep. Use the nasal steroid as prescribed, helps decrease swelling within the sinuses the nasal passageways. Will also put you on prednisone to help decrease symptoms. If you are not improving over the next week, or worsening at any point, may need further evaluation, possible ENT evaluation if ongoing sinus issues. Activity Level: Activity as Tolerated Prescriptions: New amoxicillin-pot clavulanate 875-125 mg tablet 1 tab PO BID Qty: 14 0RF fluticasone propionate 50 mcg/actuation spray,suspension 2 spray intranasal DAILY Qty: 16 0RF Rx Instructions: administer into each nostril prednisone 20 mg tablet 20 mg PO BID Qty: 10 0RF codeine sulfate 30 mg tablet 30 mg PO HS PRNQty: 10 0RF No Action amoxicillin-pot clavulanate 875-125 mg tablet 1 tab PO BID 7 Days Qty: 14 0RF prednisone 20 mg tablet 40 mg PO QDAY 5 Days Qty: 10 0RF albuterol sulfate 90 mcg/actuation HFA aerosol inhaler 2 puff inhalation Q4-6H PRN (Reason: shortness of breath or wheezing) Qty: 1 0RF Follow Up/Referrals: Soraida Fuller APRN, MANAGEMENT ADVISOR [Primary Care Provider] - Stand Alone Forms: [employer] Info Instructions
--- NOTE | 2023-11-22 12:54 | XR_ITS ---
Final Report Patient: JORGE ALBERTO MCCAIN Facility:?[facility] Patient ID:?[id number] Site Patient ID:?[id number]. Site :?1990 Study:?XRay Chest 2V-11/22/2023 1:07:17 PM Ordering Physician:KIAN Final Report: Indication: Cough Comparison: None available. Technique: PA and lateral views of the chest Findings: There is no focal consolidation, effusion, or pneumothorax. The cardiomediastinal silhouette is within normal limits. The bony thorax is grossly intact. Impression: No acute cardiopulmonary abnormality. Dictated by Kristian Marte MD @ 11/22/2023 1:28:54 PM (Electronic Signature)
[2023-11-22 13:53] VITALS: BP 124/78; PULSE 91; RESP 16; TEMP 36.7
== END 2023-11-22 13:54 | disposition home or self-care (01) ==
PROVIDERS: Emergency Provider Family Medicine; PCP Nurse Practitioner Family
DX: J01.90 Acute sinusitis, unspecified (principal)
CPT/HCPCS: 71046; 99283

== ENCOUNTER 2023-12-03 07:42 | Outpatient (CLI) | payer MEDICAID, SELFPAY ==
--- NOTE | 2023-12-03 08:00 | CT_ITS ---
Patient: JORGE ALBERTO MCCAIN Facility:?[facility] Patient ID:?[id number] Site Patient ID:?[id number]. Site :?1990 Study:?CT-Sinus WO-12/03/2023 7:56:22 AM Ordering Physician:COOPER Final Report: Indication: ACUTE SINUSITIS Technique: Performed without IV contrast Comparison: None available Findings: Frontal sinuses: Mucosal thickening is present within both frontal sinuses, right greater than left. Ethmoid sinuses: Near-complete opacification of the ethmoid sinuses bilaterally. Maxillary sinuses: Moderate opacification of both maxillary sinuses. The maxillary sinus drainage pathways are obstructed on both sides. Sphenoid sinuses: Mild mucosal thickening is present bilaterally with partial obstruction of the sphenoethmoidal recesses. Nasal Cavity: Mild rightward curvature of the nasal septum. Nasal turbinate hypertrophy noted. No TMJ abnormalities identified. The visualized portions of the orbits, intracranial contents and upper soft tissue neck are grossly negative. Impression: 1. Severe bilateral ethmoid sinus disease. 2. Moderately severe bilateral maxillary sinus disease. 3. Mild bilateral sphenoid sinus disease and left frontal sinus disease. Mild- moderate right frontal sinus disease. Please note that all CT scans at this facility use dose modulation, iterative reconstruction, and/or weight-based dosing when appropriate to reduce radiation dose to as low as reasonably achievable. Dictated by Nitish Aguirre MD @ 12/03/2023 10:53:06 AM Signed by:?Nitish Aguirre MD @12/03/2023 10:53:06 AM (Electronic Signature)
== END 2023-12-03 07:43 | disposition home or self-care (01) ==
LOC: CT 07:42
PROVIDERS: PCP Nurse Practitioner Family; Visit Provider Nurse Practitioner Family
DX: J01.90 Acute sinusitis, unspecified (principal); J32.2 Chronic ethmoidal sinusitis; J32.0 Chronic maxillary sinusitis; J32.3 Chronic sphenoidal sinusitis; B96.89 Other specified bacterial agents as the cause of diseases classified elsewhere
CPT/HCPCS: 70486

== ENCOUNTER 2024-02-25 14:09 | Outpatient (CLI) | payer MEDICAID, SELFPAY ==
--- OUTSIDE RECORDS SUMMARY | 2024-02-25 14:11 | XMS_ITS | Clinical Summary ---
Author Organization [employer] [facility] Address [place], [place] [address] Care Team Providers Care Grocery Checker Name Role Phone Pcp, No Primary Care Provider Unavailabl e Allergies No known active allergies Medications No known medications Active Problems Problem Noted Date Diagnosed Date Contraceptive surveillance, unspecified 02/04/20 08 Immunizations Name Administration Dates Next Due DTP 01/06/1995,08/26/1991,1990 DTP-HIB 01/23/1993 DTaP-HIB (TriHIBIT) 01/23/1993 Hepatitis B (Peds) 08/30/2002,03/28/2002, 002 MMR 02/16/2002,01/23/1993 Oral Polio Vaccine 01/06/1995,01/23/1993, 990 Td (Age >=7 Years) 08/02/2004 Tuberculin (PPD) 04/07/2008 Family History Medical History Relation Name Comments Other Father Brain aneurysm Good Health Maternal Grandmother Good Health Mother Diabetes Paternal Grandmother Relation Name Status Comments Father Maternal Grandmother Mother Paternal Grandmother Social History Tobacco Use Types Packs/Day Years Used Date Smoking Tobacco: Every Day Cigarettes Smokeless Tobacco: Never Comments:mother/brother insi de-pt still smokes sometimes Alcohol Use Standard Drinks/Week Comments No 0 (1 standard drink = 0.6 oz pur e alcohol) Sex and Gender Information Value Date Recorded Sex Assigned at Not on file Gender Identity Not on file Sexual Orientation Not on file Obstetrics History Para Term AB IAB SAB Ectopic Multiple Livin g Live Births 0 0 0 0 0 0 0 0 0 0 Last Filed Vital Signs Vital Sign Reading Time Taken Comments Blood Pressure 122/77 01/02/2011 5:20 PM CDT Pulse 105 01/02/2011 5:20 PM CDT Temperature 36.7 ??C (98.1 ??F) 11/23/2007 5:48 PM CS T Respiratory Rate - - Oxygen Saturation - - Inhaled Oxygen Concentration - - Weight 73.2 kg (161 lb 6.4 oz) 01/02/2011 5:20 P M CDT Height 165.7 cm (5' 5.25) 01/15/2010 2:22 PM CD T Body Mass Index - - Plan of Treatment Health Maintenance Due Date Last Done Comments Tdap 2001 Depression screening for age 12+ 2002 HIV for age 15-65 2005 BMI (ht and wt on same day) for age 18+ 01/23/2008 Hepatitis C screening for age 18-79 01/23/2008 Tetanus booster 08/02/2014 08/02/2004 Pap test for age 21-65 10/20/2016 4, 10/20/2013, 12/11/2011, Additional history exists COVID-19 vaccine series (2022-24 season) 2023 Influenza for age 9-49 05/22/2024 Pneumococcal series for age 6-64 Aged Out No longer eligible based on patient's age to complete this topic Procedures Procedure Name Priority Date/Time Associated Diagnosis Comments HPV THIN PREP Timed 10/20/2013 3:56 PM VETERINARY LIVESTOCK INSPECTOR from Last 3 Months or Most Recently Relevant to Health Maintenance Results * HPV THIN PREP (10/20/2013 3:56 PM VETERINARY LIVESTOCK INSPECTOR) SPECIMEN/SOURC E Thin prep [facility] HPV RESULTS High Risk HPV Negative. HPV types 16,18,31, 33,35,39, 45,51,52, 56,58,59, 66 and 68 DNA were undetecta ble or below the pre-set threshold . Methodolo gy: Lan Boris 4800 HPV Test [facility] 10/20/2013 3:56 PM VETERINARY LIVESTOCK INSPECTOR 10/20/2013 3:56 PM VETERINARY LIVESTOCK INSPECTOR Soraida Aguiar MICROBIOLOGY [facility] [place] ZIP [id number] [facility] [place] [address] from Last 3 Months or Most Recently Relevant to Health Maintenance Care Teams Grocery Checker Relationship Specialty Start Date End Date Pcp, No . PCP - General 08/27/18
--- NOTE | 2024-02-25 14:30 | CRLHL7_ITS ---
For Patients: As a result of the Century Cures Act, medical imaging exams and procedure reports are released immediately into your electronic medical record. You may view this report before your referring provider. If you have questions, please contact your health care provider. INDICATION: Left hip pain. COMPARISON: Plain film 16 Feb 2024. TECHNIQUE: Coronal T1 and PD fat sat and axial T1 pelvis with axial coronal and sagittal and oblique axial PD fat sat left hip sequences. FINDINGS: Left hip: No fracture, bone lesion or avascular necrosis with uniform well maintained cartilage on physiologic fluid. No retroversion or over coverage of the glenoid. Morphology of the femoral head neck offset slightly flattened superiorly. Query prior surgical femoral plasty. Within limitations of a non arthrogram technique and paucity of fluid in the joint, no labral pathology is appreciated. No periarticular fluid collection. Peritrochanteric tissues are normal. Pelvis: Right hip looks unremarkable on large field imaging. Low signal presumed anchors in the superior acetabulum suggest prior labral repair. Micro metallic artifact in the subcutaneous adipose of the lower abdominal wall. This is likely from prior surgical incision. No fluid in the peritoneum. IMPRESSION: No significant abnormality of the left hip. Query prior femoral plasty. No definite labral tear. Dictated by Winston Dueñas MD @ 02/26/2024 12:26:27 PM (Electronically Signed)
== END 2024-02-25 14:10 | disposition home or self-care (01) ==
LOC: MRI 14:10
PROVIDERS: PCP Nurse Practitioner Family; Visit Provider Nurse Practitioner Family
DX: M25.552 Pain in left hip (principal)
CPT/HCPCS: 73721

== ENCOUNTER 2024-04-05 16:30 | Outpatient (CLI) | payer MEDICAID, SELFPAY ==
--- OUTSIDE RECORDS SUMMARY | 2024-04-05 16:33 | XMS_ITS | Clinical Summary ---
Author Organization [facility] Address [place], [place] [address] Care Team Providers Care Straightening Machine Operator Name Role Phone Pcp, No Primary Care [...] HPV THIN PREP Timed 10/20/2013 3:56 PM DETECTIVE CHIEF from Last 3 Months or Most Recently Relevant to Health Maintenance Results * HPV THIN PREP (10/20/2013 3:56 PM DETECTIVE CHIEF) SPECIMEN/SOURC E Thin prep [facility] HPV RESULTS High Risk HPV Negative. HPV types 16,18,31, 33,35,39, 45,51,52, 56,58,59, 66 and 68 DNA were undetecta ble or below the pre-set threshold . Methodolo gy: Lan Boris 4800 HPV Test [facility] 10/20/2013 3:56 PM DETECTIVE CHIEF 10/20/2013 3:56 PM DETECTIVE CHIEF Soraida Aguiar MICROBIOLOGY [facility] [place]NAL ZIP [id number] [phone] [facility] [place] [address] from Last 3 Months or Most Recently Relevant to Health Maintenance Care Teams Straightening Machine Operator Relationship Specialty Start Date End Date Pcp, No . PCP - General 08/27/18
== END 2024-04-05 16:31 | disposition home or self-care (01) ==
PROVIDERS: PCP Nurse Practitioner Family; Visit Provider Nurse Practitioner Family
DX: Z13.220 Encounter for screening for lipoid disorders (principal); Z13.0 Encounter for screening for diseases of the blood and blood-forming organs and certain disorders involving the immune mechanism
CPT/HCPCS: 80048; 85025